=== PATIENT | male | born 2000 | race Caucasian/White ===

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

== ENCOUNTER 2020-11-26 02:31 | Emergency (ER) | payer OTHER ==
[2020-11-26 04:01] LABS: HEMOGLOBIN 14.9 gm/dl (14.0-17.5); RED BLOOD COUNT 4.7 M/UL (4.20-5.50); WHITE BLOOD COUNT 7.4 K/UL (4.5-11.0)
[2020-11-26 04:16] LABS: BUN/CREATININE RATIO 6 (0-10)
== END 2020-11-26 04:50 | disposition home or self-care (01) ==
LOC: ER1 02:31
PROVIDERS: Physician Assistant
DX: J02.9 Acute pharyngitis, unspecified (principal); F17.290 Nicotine dependence, other tobacco product, uncomplicated
CPT/HCPCS: 80048; 85025; 87081; 87880; 99283

== ENCOUNTER 2021-01-06 22:52 | Emergency (ER) | payer OTHER | END 2021-01-07 | disposition home or self-care (01) | LOC: ER1 22:52 | DX: T78.1XXA Other adverse food reactions, not elsewhere classified, initial encounter (principal); R22.1 Localized swelling, mass and lump, neck | CPT/HCPCS: 99283 ==

== ENCOUNTER 2021-02-26 02:08 | Emergency (ER) | payer OTHER ==
[2021-03-01 17:12] LABS: CHLAMYDIA TRACHOMATIS, NAA Negative (Negative); NEISSERIA GONORRHOEAE, NAA Negative (Negative)
== END 2021-02-26 03:10 | disposition home or self-care (01) ==
LOC: ER1 02:08
PROVIDERS: Physician Assistant
DX: R10.9 Unspecified abdominal pain (principal)
CPT/HCPCS: 81001; 87086; 99284